=== PATIENT | female | born 1980 | race Hispanic/Latino ===

== ENCOUNTER 2020-05-01 05:41 | Emergency (ER) | payer OTHER ==
[2020-05-01] MEDS ORDERED: Acetaminophen 500 MG TAB ONE (06:00)
[2020-05-01] MEDS ORDERED: Ibuprofen 800 MG TAB ONE (06:00)
--- NOTE | 2020-05-01 07:54 | RAD ---
Right foot 3 views HISTORY: Fall. Injury. FINDINGS: Lisfranc joint alignment is within normal limits. Pes planus on the lateral view. Mild osteophytosis throughout the foot. No acute fracture, dislocation, or aggressive osseous erosion s. Old healed injury of the distal fibula better detailed on dedicated ankle exam. Mild bunion deformity at the first metatarsal head. IMPRESSION : No acute abnormalities are demonstrated.
--- NOTE | 2020-05-01 09:14 | RAD ---
RIGHT ANKLE 3 VIEWS: Date: 05/01/2020 INDICATION: History of tripped, right ankle injury. COMPARISON: None. IMPRESSION: No acute fracture or subluxation is evident. The ankle mortise is symmetric. There is healed deformi ty involving the lateral malleolus. There is soft tissue swelling of the hindfoot and foreleg. POS: BH
== END 2020-05-01 06:32 | disposition home or self-care (01) ==
LOC: ERS 05:41
DX: S93.401A Sprain of unspecified ligament of right ankle, initial encounter (principal); I10 Essential (primary) hypertension; W01.0XXA Fall on same level from slipping, tripping and stumbling without subsequent striking against object, initial encounter

== ENCOUNTER 2020-07-28 13:59 | Emergency (ER) | payer SELFPAY ==
[2020-07-28 21:51] LABS: SARS-CoV-2 PCR by NAA Not Detected (NotDetected)
== END 2020-07-28 15:15 | disposition home or self-care (01) ==
LOC: ERS 13:59
DX: R05 Cough (principal); M79.10 Myalgia, unspecified site; Z20.822 Contact with and (suspected) exposure to COVID-19; I10 Essential (primary) hypertension
CPT/HCPCS: 87635; 99283; U0003; U0005

== ENCOUNTER 2021-01-14 11:01 | Emergency (ER) | payer SELFPAY ==
[2021-01-14] MEDS ORDERED: HYDROcodone/Acetaminophen 7.5/325 mg Tablet ONE (12:08)
[2021-01-14] MEDS ORDERED: Cyclobenzaprine 10 MG TAB ONE (12:09)
[2021-01-14] MEDS ORDERED: Ketorolac Tromethamine 30 MG/ML VIAL ONE (12:09)
== END 2021-01-14 12:51 | disposition home or self-care (01) ==
LOC: ERS 11:01
DX: G89.29 Other chronic pain (principal); M54.50 Low back pain, unspecified; I10 Essential (primary) hypertension; Z79.899 Other long term (current) drug therapy
CPT/HCPCS: 96372; 99283; J1885

== ENCOUNTER 2021-04-15 13:04 | Emergency (ER) | payer SELFPAY ==
[2021-04-15 13:33] LABS: Bacteria/HPF None Seen HPF (None Seen); Bilirubin Negative (Negative); Blood, Urine Negative (Negative); Clarity Clear (Clear); Glucose, Urine (Dipstick) Normal (Negative); Ketone, Urine Negative (Negative); Leukocyte 250 Leu/uL (Negative); Nitrite Negative (Negative); Protein, Urine (Dipstick) Negative (Neg-Trace); RBC/HPF 0-3 HPF (0-3); Specific Gravity, Urine 1.025 (1.002-1.036); Squamous Epithelial 0-3 HPF (0-3); Urobilinogen Normal mg/dL (Less than 2)
[2021-04-15] MEDS ORDERED: Ketorolac Tromethamine 30 MG/ML VIAL ONE (13:54)
== END 2021-04-15 14:24 | disposition home or self-care (01) ==
LOC: ERS 13:04
DX: N39.0 Urinary tract infection, site not specified (principal); M54.50 Low back pain, unspecified; I10 Essential (primary) hypertension
CPT/HCPCS: 81003; 81015; 96372; 99283; J1885

== ENCOUNTER 2021-05-05 19:35 | Emergency (ER) | payer SELFPAY ==
[2021-05-05] MEDS ORDERED: Famotidine 20 MG TAB ONE (20:05)
[2021-05-05] MEDS ORDERED: diphenhydrAMINE 25 MG CAP ONE (20:05)
[2021-05-05] MEDS ORDERED: Dexamethasone 10 MG/ML VIAL ONE (20:05)
== END 2021-05-05 21:55 | disposition home or self-care (01) ==
LOC: ERS 19:35
DX: L50.9 Urticaria, unspecified (principal); T45.4X5A Adverse effect of iron and its compounds, initial encounter; I10 Essential (primary) hypertension
CPT/HCPCS: 99283; J1100

== ENCOUNTER 2021-08-08 23:32 | Emergency (ER) | payer SELFPAY | END 2021-08-09 01:46 | disposition left against medical advice (07) | LOC: ERS 23:32 | DX: Z53.21 Procedure and treatment not carried out due to patient leaving prior to being seen by health care provider (principal) ==

== ENCOUNTER 2021-08-17 23:56 | Emergency (ER) | payer SELFPAY ==
[2021-08-18] MEDS ORDERED: Bacitracin 1 PK ONE (00:38)
[2021-08-18] MEDS ORDERED: Lidocaine 1% PF 5 ML VIAL ONE (00:38)
[2021-08-18] MEDS ORDERED: Acetaminophen 500 MG TAB ONE (00:53)
== END 2021-08-18 01:07 | disposition home or self-care (01) ==
LOC: ERS 23:56
DX: L02.436 Carbuncle of left lower limb (principal); I10 Essential (primary) hypertension; Z79.899 Other long term (current) drug therapy
CPT/HCPCS: 10060

== ENCOUNTER 2021-09-09 12:54 | Emergency (ER) | payer SELFPAY ==
[2021-09-09 13:46] LABS: #Eosinphils 0.4 thou/uL (0.0-0.7); #Lymphocytes 1.8 thou/uL (1.20-3.40); #Monocytes 0.5 thou/uL (0.11-0.59); #Neutrophils 3.4 thou/uL (1.40-6.50); %Basophils 0.1 % (0.0-1.0); %Eosinophils 6.9 % (0.0-10.0); %Lymphocytes 28.9 % (21.0-51.0); %Monocytes 8.2 % (0.0-10.0); %Neutrophils 55.9 % (42.0-75.0); Hemoglobin 10.8 g/dL (12.0-16.0); Mean Corpuscular HGB CONC 31.5 g/dL (32.0-36.0); Mean Corpuscular Hemoglobin 24.8 pg (27.0-31.0); Mean Corpuscular Volume 78.7 fL (78.0-98.0); Platelet Count 431 thou/uL (130-400); RBC Distribution Width 15.8 % (11.5-14.5); Red Blood Cell (RBC) Count 4.34 mill/uL (4.20-5.40); White Blood Cell (WBC) Count 6.1 thou/uL (4.8-10.8)
[2021-09-09 14:07] LABS: ALT (SGPT) 29 U/L (8-55); AST (SGOT) 22 U/L (5-34); Albumin 4.2 g/dL (3.5-5.0); Alkaline Phosphatase 117 U/L (40-110); Anion Gap 12 mmol/L (10-20); BUN (Urea Nitrogen) 7 mg/dL (7.0-18.7); Bilirubin, Total 0.9 mg/dL (0.2-1.2); Calc. Creatinine Clearance 0 mL/min (70-130); Calcium 9.5 mg/dL (7.8-10.44); Carbon Dioxide 23 mmol/L (22-29); Chloride 104 mmol/L (98-107); Globulin 3.6 g/dL (2.4-3.5); Glucose 106 mg/dL (70-105); Potassium 3.4 mmol/L (3.5-5.1); Protein, Total 7.8 g/dL (6.0-8.3); Sodium 136 mmol/L (136-145)
[2021-09-09 14:38] LABS: BHCG - Serum Negative (NEGATIVE); Pregs Control Background? CLEAR/WHITE (CLR/WHITE); Pregs Control Bar Appear? YES (CONTROL BAR)
[2021-09-09] MEDS ORDERED: Ketorolac Tromethamine 30 MG/ML VIAL ONE (15:08)
[2021-09-09] MEDS ORDERED: Acetaminophen 500 MG TAB ONE (15:08)
[2021-09-09 15:46] LABS: Bacteria/HPF 1+ HPF (None Seen); Bilirubin Negative (Negative); Blood, Urine Negative (Negative); Clarity Turbid (Clear); Glucose, Urine (Dipstick) 30 mg/dL (Negative); Ketone, Urine Negative (Negative); Leukocyte Negative Leu/uL (Negative); Nitrite Negative (Negative); Protein, Urine (Dipstick) 70 mg/dL (Neg-Trace); RBC/HPF 0-3 HPF (0-3); Specific Gravity, Urine 1.025 (1.002-1.036); Squamous Epithelial 0-3 HPF (0-3); pH, Urine 5.5 (5.0-9.0)
== END 2021-09-09 16:03 | disposition home or self-care (01) ==
LOC: ERS 12:54
DX: M54.50 Low back pain, unspecified (principal); I10 Essential (primary) hypertension; Z79.899 Other long term (current) drug therapy
CPT/HCPCS: 36415; 80053; 81003; 81015; 84703; 85025; 87086; 96372; 99283; J1885

== ENCOUNTER 2022-01-06 16:58 | Emergency (ER) | payer OTHER, SELFPAY ==
[2022-01-06] MEDS ORDERED: Ketorolac Tromethamine 30 MG/ML VIAL ONE (19:30)
[2022-01-06] MEDS ORDERED: Acetaminophen 500 MG TAB ONE (19:30)
== END 2022-01-06 19:51 | disposition home or self-care (01) ==
LOC: ERS 16:58
DX: M79.18 Myalgia, other site (principal); I10 Essential (primary) hypertension; V89.2XXA Person injured in unspecified motor-vehicle accident, traffic, initial encounter
CPT/HCPCS: 72100; 96372; J1885

== ENCOUNTER 2024-02-06 10:59 | Emergency (ER) | payer OTHER ==
[2024-02-06] MEDS ORDERED: Ibuprofen 800 MG TAB ONE (12:04)
[2024-02-06] MEDS ORDERED: Ondansetron ODT 4 MG TAB ONE (12:07)
== END 2024-02-06 12:44 | disposition home or self-care (01) ==
LOC: ERS 10:59
DX: B34.9 Viral infection, unspecified (principal); I10 Essential (primary) hypertension
CPT/HCPCS: 87428; 99284; Q0162

== ENCOUNTER 2024-04-03 13:49 | Emergency (ER) | payer OTHER ==
[2024-04-03] MEDS ORDERED: Ketorolac Tromethamine 30 MG (1 mL) VIAL ONE (14:45)
[2024-04-03] MEDS ORDERED: Acetaminophen 500 MG TAB ONE (14:45)
[2024-04-03] MEDS ORDERED: Ondansetron PF 4 MG/2 ML Vial ONE (14:46)
[2024-04-03 14:53] LABS: ALT (SGPT) 20 U/L (8-55); AST (SGOT) 20 U/L (5-34); Albumin 4.6 g/dL (3.5-5.0); Alkaline Phosphatase 112 U/L (40-110); Anion Gap 14 mmol/L (10-20); BUN (Urea Nitrogen) 15 mg/dL (7.0-18.7); Bilirubin, Total 0.8 mg/dL (0.2-1.2); Calc. Creatinine Clearance 0 mL/min (70-130); Calcium 10.1 mg/dL (7.8-10.44); Carbon Dioxide 27 mmol/L (22-29); Chloride 101 mmol/L (98-107); Estimated GFR 75; Globulin 4.5 g/dL (2.4-3.5); Glucose 108 mg/dL (70-105); Potassium 3.3 mmol/L (3.5-5.1); Protein, Total 9.1 g/dL (6.0-8.3); Sodium 139 mmol/L (136-145)
[2024-04-03 15:14] LABS: #Basophils 0.03 10x3/uL (0.0-0.2); %Basophils 0.5 % (0.0-1.0); %Eosinophils 1.9 % (0.0-10.0); %Lymphocytes 27.1 % (21.0-51.0); %Monocytes 8.1 % (0.0-10.0); %Neutrophils 62.1 % (42.0-75.0); Hematocrit 34.1 % (36.0-47.0); Hemoglobin 10.3 g/dL (12.0-16.0); Mean Corpuscular HGB CONC 30.2 g/dL (32.0-36.0); Mean Corpuscular Hemoglobin 21.4 pg (27.0-31.0); Mean Corpuscular Volume 70.9 fL (78.0-98.0); Platelet Count 629 10x3/uL (130-400); Red Blood Cell (RBC) Count 4.81 mill/uL (4.20-5.40)
[2024-04-03 16:30] LABS: BHCG - Serum Negative (NEGATIVE); Pregs Control Background? CLEAR/WHITE (CLR/WHITE); Pregs Control Bar Appear? YES (CONTROL BAR)
[2024-04-03 16:36] LABS: Bacteria/HPF None Seen HPF (None Seen); Bilirubin Negative (Negative); Blood, Urine 3+ (Negative); CAUTI Indications for Culture Dysuria,urgency,freq; Clarity Turbid (Clear); Glucose, Urine (Dipstick) Normal (Negative); Ketone, Urine Trace mg/dL (Negative); Leukocyte 25 Leu/uL (Negative); Nitrite Negative (Negative); Protein, Urine (Dipstick) 50 mg/dL (Neg-Trace); Specific Gravity, Urine 1.026 (1.002-1.036); pH, Urine 5.5 (5.0-9.0)
[2024-04-03 16:40] LABS: Urine Culture Reflex No No
== END 2024-04-03 17:25 | disposition home or self-care (01) ==
LOC: ERS 13:49
DX: D25.9 Leiomyoma of uterus, unspecified (principal); D64.9 Anemia, unspecified; I10 Essential (primary) hypertension; Z55.6 Problems related to health literacy
CPT/HCPCS: 36415; 76856; 80053; 81001; 83690; 84703; 85025; 86850; 86900; 86901; 96374; 96375; J1885; J2405

== ENCOUNTER 2024-04-30 17:14 | Emergency (ER) | payer OTHER ==
[2024-04-30] MEDS ORDERED: Acetaminophen 500 MG TAB ONE (20:29)
[2024-04-30] MEDS ORDERED: Ibuprofen 800 MG TAB ONE (20:29)
== END 2024-04-30 20:34 | disposition home or self-care (01) ==
LOC: ERS 17:14
DX: R05.1 Acute cough (principal); R50.9 Fever, unspecified; I10 Essential (primary) hypertension
CPT/HCPCS: 71045; 87428